=== PATIENT | male | born 1980 | race Two or more races ===

== ENCOUNTER 2023-10-29 19:49 | Emergency (ER) | payer OTHER ==
[~2023-10-29] VITALS: Ht 182.9 cm; Wt 87.0 kg
[2023-10-29] MEDS: normal saline 1000ml 1,000 ML IV ONE (22:33)
[2023-10-29] MEDS: LORazepam 2 mg/ml vial IV ONE (22:51)
[2023-10-29 23:10] LABS: D-DIMER 0.29 MG/L FEU (0-0.50)
[2023-10-29 23:22] LABS: ANION GAP 13 (8-16); BLOOD UREA NITROGEN 25 MG/DL (7-18); CALCIUM 8.1 MG/DL (8.5-10.1); CHLORIDE 109 MMOL/L (99-107); CREATININE 1.25 MG/DL (0.60-1.10); GLUCOSE 96 MG/DL (70-104); MAGNESIUM 2.2 MG/DL (1.5-2.4); POTASSIUM 3.4 MMOL/L (3.5-5.1); PRO BRAIN NATRIURETIC PEPTIDE 34 PG/ML (0-125); SODIUM 148 MMOL/L (135-145); eCRCL 83 ML/MIN; eGFR 63 ML/MIN
[2023-10-29 23:38] LABS: BASOPHILS # (AUTO) 0.1 X10'3 (0-0.2); MEAN CORPUSCULAR HGB CONC 34.5 g/dL (33.0-36.5)
[2023-10-30 00:19] LABS: BASOPHILS % (AUTO) 0.7 % (0-1); EOSINOPHILS # (AUTO) 0.2 X10'3 (0-0.9); HEMATOCRIT 40.4 % (42.0-52.0); HEMOGLOBIN 13.9 g/dl (14.0-17.9); LYMPHOCYTES # (AUTO) 2.3 X10'3 (1.1-4.8); LYMPHOCYTES % (AUTO) 28.8 % (21-51); MEAN CORPUSCULAR HEMOGLOBIN 31.5 PG (27.0-31.0); MEAN CORPUSCULAR VOLUME 91.4 FL (78-98); MEAN PLATELET VOLUME 9.1 FL (7.4-10.4); MONOCYTES # (AUTO) 0.5 X10'3 (0-0.9); MONOCYTES % (AUTO) 6.6 % (2-12); NEUTROPHILS # (AUTO) 4.9 X10'3 (1.8-7.7); NEUTROPHILS % (AUTO) 60.9 % (42-75); PLATELET COUNT 207 X10'3 (140-440); RED BLOOD COUNT 4.42 X10'6 (4.70-6.10); RED CELL DISTRIBUTION WIDTH 13.3 % (11.5-14.5)
[2023-10-30 01:18] VITALS: BP 127/77; PULSE 56; RESP 16; TEMP 98; O2SAT 95
== END 2023-10-30 01:21 | disposition home or self-care (01) ==
LOC: ER 19:49
DX: R00.2 Palpitations (principal); R06.00 Dyspnea, unspecified; I10 Essential (primary) hypertension; E78.00 Pure hypercholesterolemia, unspecified; Z90.49 Acquired absence of other specified parts of digestive tract; Z98.890 Other specified postprocedural states
CPT/HCPCS: 36415; 71045; 80048; 83735; 83880; 84484; 85025; 85379; 93005; 99285; J7030